=== PATIENT | male | born 1970 | race Two or more races ===

== ENCOUNTER 2018-04-18 10:46 | Emergency (ER) | payer OTHER ==
[~2018-04-18] VITALS: Wt 74.7 kg
[~2018-04-18 10:46] MED LIST: ASA400 PO; MERC1POW2 MC; [UNRECOGNIZED DRUG - OTHER]; [UNRECOGNIZED DRUG - OTHER]
[2018-04-18 10:49] VITALS: BP 162/84; PULSE 87; RESP 18
[2018-04-18] MEDS ORDERED: TRAM50TA2 PO (12:30)
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
== END 2018-04-18 12:48 | disposition home or self-care (01) ==
LOC: FTE 10:46
DX: S49.92XA Unspecified injury of left shoulder and upper arm, initial encounter (principal); F17.210 Nicotine dependence, cigarettes, uncomplicated; W50.0XXA Accidental hit or strike by another person, initial encounter; Y92.9 Unspecified place or not applicable
CPT/HCPCS: 71045; 73030; Z7502